=== PATIENT | female | born 1970 | race Caucasian/White ===

== ENCOUNTER 2023-04-17 15:25 | Emergency (ER) | payer BC, SELFPAY ==
[2023-04-17 15:34] VITALS: BP 169/82; PULSE 92; RESP 18; TEMP 36.9; O2SAT 100
[2023-04-17 15:40] VITALS: BP 169/82; PULSE 92; RESP 18; TEMP 36.9; O2SAT 100
--- NOTE | 2023-04-17 15:45 | ED.FEMALEGU ---
HPI - Female Genitourinary General Chief complaint: Urogenital-Female Stated complaint: Poss UTI Time Seen by Provider: 04/17/23 15:56 Source: patient and RN notes reviewed Mode of arrival: ambulatory Limitations: no limitations History of Present Illness HPI Narrative: 52-year-old female with history of diabetes presents with concern for urine frequency, urgency, burning, suprapubic pain and pressure for 4 days. She denies fever, aches, chills, sweats, nausea, vomiting, back pain. She reports she has been taking cranberry pills. MD elicited complaint: UTI Related Data Home Medications Medication Instructions Recorded Confirmed metformin 500 mg tablet 500 mg PO BID 04/17/23 04/17/23 semaglutide 14 mg tablet (Rybelsus) 14 mg PO DAILY 04/17/23 04/17/23 valsartan 80 mg tablet 80 mg PO DAILY 04/17/23 04/17/23 Allergies Allergy/AdvReac Type Severity Reaction Status Date / Time No Known Allergies Allergy Verified 04/17/23 15:40 Review of Systems Review of Systems: CONSTITUTIONAL: Denies malaise, chills, sweats, or fever. CARDIOVASCULAR: Denies chest pain, palpitations, or edema. RESPIRATORY: Denies cough or dyspnea. GASTROINTESTINAL: Denies abdominal pain, nausea, vomiting, diarrhea GENITOURINARY: Reports dysuria at the end of urination, frequency, urgency, suprapubic pressure. Denies flank pain or hematuria. SKIN: Denies rash or itching. MUSCULOSKELETAL: Denies back pain or myalgia. All systems reviewed & are unremarkable except as noted in HPI and below PMFSH Comments At time of signature, agree with nursing past medical, surgical, social and family history. There is no relevant family history pertinent to the presenting complaint Exam Narrative: GENERAL: Well-appearing, well-nourished, and in no acute distress. HEAD: Normocephalic. EYES: PERRLA, conjunctivae clear. NECK: Supple. No lymphadenopathy CHEST: Clear to auscultation. No respiratory distress. HEART: Regular rate and rhythm. ABDOMEN: Soft, nontender upon palpation, nondistended, normal active bowel sounds, no palpable or pulsatile masses, no guarding. No CVA tenderness SKIN: Warm, dry, no rash. NEURO: Alert and oriented x3. PSYCH: Normal mood and affect Course Course Emergency Course: Patient is visiting from out of town, she reports she would rather started antibiotic while waiting for the culture since she will be out of town soon. She would like a phone call if her results are negative Patient is aware of diagnosis, understands and agrees to treatment plan. Anticipatory guidance given. Patient agrees to follow-up as directed and is aware of reasons to seek care at the emergency department. Portions of this record may have been created with voice recognition software Level of Care: Express Care Visit Vital Signs Vital signs: Vital Signs Temperature 98.5 F 04/17/23 15:34 Pulse Rate 92 04/17/23 15:34 Respiratory Rate 18 04/17/23 15:34 Blood Pressure 169/82 H 04/17/23 15:34 Pulse Oximetry 100 04/17/23 15:34 Oxygen Delivery Room Air 04/17/23 15:34 Temperature 98.5 F 04/17/23 15:40 Pulse Rate 92 04/17/23 15:40 Respiratory Rate 18 04/17/23 15:40 Blood Pressure 169/82 H 04/17/23 15:40 Pulse Oximetry 100 04/17/23 15:40 Oxygen Delivery Room Air 04/17/23 15:40 Reviewed. MDM - Female Genitourinary MDM Narrative Medical decision making narrative: Exam findings and UA show no acute concerns or changes; patient is non-toxic appearing and is in no distress. Patient is appropriate for outpatient treatment and follow-up. Differential Diagnosis Differential diagnosis: Likely urinary tract infection and cystitis Critical Care Time Critical Care Time Critical Care Time: No Discharge Plan Discharge Clinical Impression: Symptoms of urinary tract infection Patient Disposition: Home, Self-Care Condition: Stable Instructions: Antibiotic Form, Urinary Tract Infection in Women (ED) A
== END 2023-04-17 15:56 | disposition home or self-care (01) ==
PROVIDERS: Emergency Provider Nurse Practitioner
DX: R35.0 Frequency of micturition (principal); R39.15 Urgency of urination; R30.0 Dysuria; R10.30 Lower abdominal pain, unspecified; I10 Essential (primary) hypertension; E11.9 Type 2 diabetes mellitus without complications
CPT/HCPCS: 81003; 87086; 87088; 99203; G0463